=== PATIENT | female | born 1975 | race Hispanic/Latino ===

== ENCOUNTER 2020-07-23 19:55 | Emergency (ER) | payer SELFPAY ==
[~2020-07-23] VITALS: Ht 157.5 cm; Wt 61.2 kg
[2020-07-23] MEDS ORDERED: KETOROLAC TROMETHAMINE 30 MG/ML VIAL IM STA (21:34)
[2020-07-23] MEDS ORDERED: ACETAMINOPHEN 325 MG TAB PO ONE (21:45)
[2020-07-23 22:18] VITALS: BP 143/81
== END 2020-07-23 22:00 | disposition home or self-care (01) ==
LOC: ER 20:23
DX: J06.9 Acute upper respiratory infection, unspecified (principal); R50.9 Fever, unspecified; R06.02 Shortness of breath; R05 Cough
CPT/HCPCS: 71045; 93005; 99284; J1885